=== PATIENT | female | born 1995 | race Caucasian/White ===

== ENCOUNTER → 2019-09-27 10:55 | Outpatient (CLI) | payer OTHER, SELFPAY ==
--- NOTE | 2019-09-27 10:58 | DI.RAD.S_ITS ---
PROCEDURE: XR HAND LT MIN 3V INDICATIONS: l wrist and hand pain TECHNIQUE: 3 views of the hand(s) acquired. COMPARISON: None. FINDINGS: Bones: Ill-defined linear lucency traverses the proximal aspect of the 5th metacarpal. Carpal bones are normally aligned. No suspicious bony lesions. Soft tissues: No suspicious soft tissue calcifications. Soft tissue swelling adjacent to the proximal 5th metacarpal. IMPRESSION: Mildly displaced proximal 5th metacarpal fracture. Dictated by: Marianela Higgins M.D. on 09/27/2019 at 10:23 Approved by: Marianela Higgins M.D. on 09/27/2019 at 10:24
== END ==
PROVIDERS: Referring Provider Physician Assistant; Visit Provider Physician Assistant
DX: M25.532 Pain in left wrist (principal); M79.642 Pain in left hand; S62.397A Other fracture of fifth metacarpal bone, left hand, initial encounter for closed fracture
CPT/HCPCS: 73130